=== PATIENT | male | born 1940 | race Caucasian/White ===

== ENCOUNTER 2017-02-18 12:07 | Emergency (ER) | payer OTHER ==
[~2017-02-18] VITALS: Ht 157.5 cm; Wt 81.6 kg
[2017-02-18] MEDS ORDERED: IV NS 0.9% 500 ML IV ONE (12:26)
[2017-02-18] MEDS ORDERED: IV SET PRIMARY PUMP SET 1 EA INFUS.SET MC ONE (12:26)
[2017-02-18] MEDS ORDERED: IV NS 0.9% 500 ML BAG IV ONE (12:30)
--- NOTE | 2017-02-18 12:35 | NUR ---
PT BIBA FOR S/P "NEAR" SYNCOPAL EPISODE. DENIES HEAD AND NECK PAIN. PER PT HE HAS BEEN HAVING THESE EPISODES RECENTLY. VSS. AAOX3. SEEN BY FOR EVAL. IV ACCESS ON LH HAND [employer] CLE[employer]ER. SAFETY AND COMFORT MEASURES PROVIDED. WILL MONITOR.
[2017-02-18 12:36] LABS: BASOPHILS # (AUTO) 0.7 /CMM (0.0-0.2); BASOPHILS % (AUTO) 3.5 % (0.0-2.0); EOSINOPHILS # (AUTO) 0.1 /CMM (0.0-0.7); EOSINOPHILS % (AUTO) 0.6 % (0.0-6.0); HEMATOCRIT 41 % (39-51); HEMOGLOBIN 13.3 g/dL (13.5-17.5); LYMPHOCYTES # (AUTO) 15.8 /CMM (0.8-4.8); LYMPHOCYTES % (AUTO) 73.9 % (20.0-44.0); MEAN CORPUSCULAR HEMOGLOBIN 30 PG (26.0-33.0); MEAN CORPUSCULAR HGB CONC 32 g/dl (31.0-36.0); MEAN CORPUSCULAR VOLUME 93 fL (80-96); MONOCYTES # (AUTO) 0.5 /CMM (0.1-1.30); MONOCYTES % (AUTO) 2.2 % (2.0-12.0); NEUTROPHILS # (AUTO) 4.2 /CMM (1.8-8.9); NEUTROPHILS % (AUTO) 19.8 % (43.0-81.0); PLATELET COUNT (AUTO) 97 /CMM (150-450); RDW COEFFICIENT OF VARIATION 16.8 (11.5-15.0); RED BLOOD CELL COUNT(AUTO) 4.43 MIL/uL (4.5-6.0); WHITE BLOOD COUNT (AUTO) 21.3 K/uL (4.3-11.0)
--- NOTE | 2017-02-18 12:40 | NUR ---
XRAY DONE AT [facility].
[2017-02-18 12:51] LABS: CALCIUM, SERUM 8.6 mg/dL (8.5-10.1); CARBON DIOXIDE 27 mmol/L (21-32); CHLORIDE 109 mmol/L (98-107); CREATININE 1.2 mg/dL (0.6-1.3); GLUCOSE 109 mg/dL (74-106); INR 0.95 (0.87-1.13); POTASSIUM 4.3 mmol/L (3.5-5.1); PROTHROMBIN TIME 9.9 SECS (9.5-12.7); SODIUM SERUM 143 mmol/L (136-145); UREA NITROGEN, BLOOD 18 mg/dL (7-18)
[2017-02-18 12:55] LABS: TROPONIN I < 0.017 ng/mL (0.00-0.056)
--- NOTE | 2017-02-18 13:15 | NUR ---
Patient does not wish to proceed with medical care recommended by Dr. South. Patient given information related to possible complications, up to and including , which could occur as a result of leaving the hospital at this time. Patient verbalizes understanding of risks involved due to leaving against medical advice. Patient has signed AMA form.
[2017-02-18 13:22] LABS: EOSINOPHILS % (MANUAL) 2 % (0-4); LYMPHOCYTES % (MANUAL) 70 % (16-48); MONOCYTES % (MANUAL) 4 % (0-11.0); NEUTROPHILS % (MANUAL) 24 (42-76)
[2017-02-18 13:35] VITALS: BP 115/65
== END 2017-02-18 13:36 | disposition left against medical advice (07) ==
LOC: ER 12:09
DX: R55 Syncope and collapse (principal); D69.6 Thrombocytopenia, unspecified; C95.90 Leukemia, unspecified not having achieved remission
CPT/HCPCS: 36415; 71010-TC; 80048-TC; 84484-TC; 85025-TC; 85730-TC; A4606; J7040; Z7610